=== PATIENT | female | born 1965 | race Caucasian/White ===

== ENCOUNTER 2018-01-12 17:24 | Emergency (ER) | payer BC ==
--- NOTE | 2018-01-12 17:51 | EDM.PDOC ---
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 Past medical history: As per history of present illness and as reviewed below otherwise noncontributory. Surgical history: As per history of present illness and as reviewed below otherwise noncontributory. Social history: No reported history of drug or alcohol abuse. Family history: As per history of present illness and as reviewed below otherwise noncontributory. Physical exam: Alert and oriented female answering questions appropriately skin is warm and dry speak in full sentences without shortness breath. HEENT: Atraumatic, normocehpalic, pupils reactive, negative for conjunctival pallor or scleral icterus, mucous membranes moist, throat clear, neck supple, nontender, trachea midline. Lungs: Clear to auscultation, breath sounds equal bilaterally, chest non tender. Heart: S1S2, regular, negative for clicks, rubs, or JVD. Abdomen: Soft, nondistended, nontender. Negative for masses or hepatossplenmegaly. Negative for costovertebral tenderness. Pelvis: Stable nontender. Genitourinary: Deferred. Rectal: Deferred Extremities: Atraumatic, negative for cords or calf pain. Neurovascular unremarkable. Neuro: Awake, alert, oriented. Cranial nerves II through XII unremarkable. Cerebellum unremarkable. Motor and sensory unremarkable throughout. Exam nonfocal. Influenza B+ Diagnostics: [Influenza ,strep] Therapeutics: [] Impression: []influenza B Plan: []Tamiflu Keep hydrated Tylenol alternating with Motrin every 3 hours for fever Return to ER as needed as directed and discussed Definitive disposition and diagnosis as appropriate pending reevaluation and review of above. Onset: Gradual Duration: Day(s): (2.5), Getting Worse Location: Reports: Head, Neck, Chest Quality: Reports: Ache, Throbbing Severity: Moderate Improves with: Reports: None Worsens with: Reports: None Associated Symptoms: Reports: Cough, Fever/Chills, Malaise Throat Pain Score (Numeric/FACES): 9 - Related Data Allergies Allergy/AdvReac Type Severity Reaction Status Date / Time Gluten Allergy Stomach Uncoded 02/26/15 17:04 Ache Home Meds: Home Meds Levothyroxine [Synthroid] 88 mcg PO DAILY 01/12/18 [History] Oseltamivir [Tamiflu] 75 mg PO BID #10 cap 01/12/18 [Rx] Social & Family History - Tobacco Use Smoking Status *Q: Never Smoker - Alcohol Use Days Per Week of Alcohol Use: 0 - Recreational Drug Use Recreational Drug Use: No Drug Use in Last 12 Months: No ED ROS GENERAL - Review of Systems Review Of Systems: ROS reveals no pertinent complaints other than HPI. ED EXAM, GENERAL - Physical Exam Exam: See Below (see dictation) Course - Vital Signs Last Recorded V/S: Last Vital Signs Temp 38.3 C H 01/12/18 19:26 Pulse 85 01/12/18 19:26 Resp 18 01/12/18 19:26 BP 141/67 H 01/12/18 19:26 Pulse Ox 97 01/12/18 19:26 - Orders/Labs/Meds Orders: Active Orders 24 hr Category Date Time Status CULTURE STREP A CONFIRMATION [] Stat Lab 01/12/18 18:07 Results STREP SCRN A RAPID W CULT CONF [RM] Stat Lab 01/12/18 18:07 Results Acetaminophen [Tylenol] Med 01/12/18 19:29 Once 650 mg PO NOW ONE Departure - Departure Time of Disposition: 19:35 Disposition: Home, Self-Care 01 Condition: Good Clinical Impression: Influenza - Discharge Information Prescriptions: Oseltamivir [Tamiflu] 75 mg PO BID #10 cap Referrals: Jazmyn Mathew CHAR PULLER [Primary Care Provider] - Additional Instructions: The following information is given to patients seen in the emergency department who are being discharged to home. This information is to outline your options for follow-up care. We provide all patients seen in our emergency department with a follow-up referral. The need for follow-up, as well as the timing and circumstances, are variable depending upon the specifics of your emergency department visit. If you don't have a primary care physician on staff, we will provide you with a referral. We always advise you to contact your personal physician following an emergency department visit to inform them of the circumstance of the visit and for follow-up with them and/or the need for any referrals to a consulting specialist. The emergency department will also refer you to a specialist when appropriate. This referral assures that you have the opportunity for followup care with a specialist. All of these measure are taken in an effort to provide you with optimal care, which includes your followup. Under all circumstances we always encourage you to contact your private physician who remains a resource for coordinating your care. When calling for followup care, please make the office aware that this follow-up is from your recent emergency room visit. If for any reason you are refused follow-up, please contact the [facility] emergency department at and asked to speak to the emergency department charge nurse. You have influenza Tamiflu twice daily for 5 days Tylenol alternating with Motrin every 3 hours for fever Small sips of fluid or 20 minutes while awake to keep Off work 1 week Note that has been written Return to ER when necessary as discussed - My Orders Last 24 Hours: My Active Orders 01/12/18 18:07 CULTURE STREP A CONFIRMATION [RM] Stat STREP SCRN A RAPID W CULT CONF [RM] Stat 01/12/18 19:29 Acetaminophen [Tylenol] 650 mg PO NOW ONE - Assessment/Plan Last 24 Hours: My Active Orders 01/12/18 18:07 CULTURE STREP A CONFIRMATION [RM] Stat STREP SCRN A RAPID W CULT CONF [RM] Stat 01/12/18 19:29 Acetaminophen [Tylenol] 650 mg PO NOW ONE
[2018-01-12 19:27] VITALS: BP 141/67
[2018-01-12] MEDS ORDERED: Acetaminophen 325 MG Tab PO ONE (19:29)
== END 2018-01-12 19:47 | disposition home or self-care (01) ==
LOC: MW.ED 17:24
DX: J10.1 Influenza due to other identified influenza virus with other respiratory manifestations (principal); Z91.048 Other nonmedicinal substance allergy status; Z79.899 Other long term (current) drug therapy
CPT/HCPCS: 87081; 87804; 87880; 99283; A9270

== ENCOUNTER 2018-01-13 16:50 | Inpatient (IN) | payer BC ==
[2018-01-13] MEDS ORDERED: Sodium Chloride 0.9% 1,000 ML IV ONE ×2 (17:07→18:15)
--- NOTE | 2018-01-13 17:10 | EDM.PDOC ---
ED HPI GENERAL MEDICAL PROBLEM - General Chief Complaint: General Stated Complaint: PT HAS FLU Time Seen by Provider: 01/13/18 17:00 - History of Present Illness INITIAL COMMENTS - FREE TEXT/NARRATIVE: HISTORY AND PHYSICAL: History of present illness: Patient 52-year-old female history thyroid disease and celiac sprue diagnosed yesterday with influenza and put on Tamiflu she returns now with general prostration poor oral intake. No shortness of breath no vomiting or diarrhea but she does complain of profound muscle aches and generalized weakness. Review of systems: As per history of present illness and below otherwise all systems reviewed and negative. Past medical history: As per history of present illness and as reviewed below otherwise noncontributory. Surgical history: As per history of present illness and as reviewed below otherwise noncontributory. Social history: No reported history of drug or alcohol abuse. Family history: As per history of present illness and as reviewed below otherwise noncontributory. Physical exam: HEENT: Atraumatic, normocephalic, pupils reactive, negative for conjunctival pallor or scleral icterus, mucous membranes dry, throat clear, neck supple, nontender, trachea midline. Lungs: Coarse bilaterally, breath sounds equal bilaterally, chest nontender. Heart: S1S2, regular, negative for clicks, rubs, or JVD. Abdomen: Soft, nondistended, nontender. Negative for masses or hepatosplenomegaly. Negative for costovertebral tenderness. Pelvis: Stable nontender. Genitourinary: Deferred. Rectal: Deferred. Extremities: Atraumatic, negative for cords or calf pain. Neurovascular unremarkable. Neuro: Awake, alert, oriented. Cranial nerves II through XII unremarkable. Cerebellum unremarkable. Motor and sensory unremarkable throughout. Exam nonfocal. Diagnostics: CBC CMP culture 2 UA urine culture chest x-ray EKG lactic acid ABG Therapeutics: Saline 1 L bolus Rocephin 1 g IV vancomycin 1 g IV Levaquin 750 IV Impression: #1 sepsis Definitive disposition and diagnosis as appropriate pending reevaluation and review of above. - Related Data Allergies Allergy/AdvReac Type Severity Reaction Status Date / Time Gluten Allergy Stomach Uncoded 02/26/15 17:04 Ache Home Meds: Home Meds Levothyroxine [Synthroid] 88 mcg PO DAILY 01/12/18 [History] Oseltamivir [Tamiflu] 75 mg PO BID #10 cap 01/12/18 [Rx] Past Medical History Gastrointestinal History: Reports: Celiac Disease - Infectious Disease History Infectious Disease History: Reports: Chicken Pox Social & Family History - Family History Family Medical History: Noncontributory - Tobacco Use Smoking Status *Q: Never Smoker - Caffeine Use Caffeine Use: Reports: Soda - Alcohol Use Days Per Week of Alcohol Use: 0 - Recreational Drug Use Recreational Drug Use: No Drug Use in Last 12 Months: No ED ROS GENERAL - Review of Systems Review Of Systems: ROS reveals no pertinent complaints other than HPI. ED EXAM, GENERAL - Physical Exam Exam: See Below (See dictation) Course - Vital Signs Last Recorded V/S: Last Vital Signs Temp 36.3 C 01/13/18 17:36 Pulse 109 H 01/13/18 19:07 Resp 22 H 01/13/18 19:07 BP 141/78 H 01/13/18 19:07 Pulse Ox 94 L 01/13/18 19:07 - Orders/Labs/Meds Orders: Active Orders 24 hr Category Date Time Status EKG 12 Lead [EKG Documentation Completion] [RC] STAT Care 01/13/18 18:42 Active EKG Documentation Completion [RC] STAT Care 01/13/18 17:07 Active EKG Documentation Completion [RC] STAT Care 01/13/18 17:43 Inactive Chest 1V Frontal [CR] Stat Exams 01/13/18 17:11 Taken CULTURE BLOOD [BC] Stat Lab 01/13/18 17:18 Received CULTURE BLOOD [BC] Stat Lab 01/13/18 17:30 Received CULTURE URINE [RM] Stat Lab 01/13/18 17:07 Ordered UA W/MICROSCOPIC [URIN] Stat Lab 01/13/18 17:07 Ordered Levofloxacin/Dextrose 5%-Water [Levaquin in D5W 750 MG/ Med 01/13/18 18:11 Active 150 ML] 750 mg Premix Bag 1 bag IV ONETIME Sodium Chloride 0.9% [Normal Saline] 1,000 ml Med 01/13/18 18:15 Active IV STAT Vancomycin [Vancocin] 1 gm Med 01/13/18 18:11 Active Sodium Chloride 0.9% [Normal Saline] 250 ml IV ONETIME Blood Culture x2 Reflex Set [OM.PC] Stat Oth 01/13/18 17:07 Ordered Medication Orders Levofloxacin/Dextrose 750 mg/ (Premix) 150 mls @ 100 mls/hr IV ONETIME ONE Stop: 01/13/18 19:40 Last Admin: 01/13/18 18:25 Dose: 100 mls/hr Vancomycin HCl 1 gm/ Sodium (Chloride) 250 mls @ 250 mls/hr IV ONETIME ONE Stop: 01/13/18 19:10 Last Admin: 01/13/18 18:24 Dose: 250 mls/hr Sodium Chloride (Normal Saline) 1,000 mls @ 999 mls/hr IV STAT ONE Stop: 01/13/18 19:15 Last Admin: 01/13/18 18:23 Dose: 999 mls/hr Labs: Laboratory Tests 01/13/18 01/13/18 01/13/18 Range/Units 17:18 17:30 17:50 WBC 0.92 L (4.0-11.0) K/uL RBC 4.31 (4.30-5.90) M/uL Hgb 14.1 (12.0-16.0) g/dL Hct 38.8 (36.0-46.0) % MCV 90.0 (80.0-98.0) fL MCH 32.7 H (27.0-32.0) pg MCHC 36.3 (31.0-37.0) g/dL RDW Std Deviation 38.0 (28.0-62.0) fl RDW Coeff of Khushboo 12 (11.0-15.0) % Plt Count 194 (150-400) K/uL MPV 9.60 (7.40-12.00) fL Add Manual Diff YES Neutrophils % (Manual) 45 L (48.0-80.0) % Band Neutrophils % 10 % Lymphocytes % (Manual) 30 (16.0-40.0) % Monocytes % (Manual) 15 (0.0-15.0) % Nucleated RBC % 0.0 /100WBC Absolute Seg Neuts 0.4 L (1.4-5.7) Band Neutrophils # 0.1 Lymphocytes # (Manual) 0.3 L (0.6-2.4) Monocytes # (Manual) 0.1 (0.0-0.8) Nucleated RBCs # 0 K/uL ABG pH 7.358 (7.35-7.45) ABG pCO2 32 L (35-45) mmHG ABG pO2 87 (75-100) mmHG ABG HCO3 18 L (22-26) mEq/L ABG Total CO2 16.5 ABG Base Excess -6.5 L (-2.0-2.0) Lactate (0.20-2.00) mmol/L Sodium 125 L (136-145) mmol/L Potassium 3.0 L (3.5-5.1) mmol/L Chloride 87 L (98-107) mmol/L Carbon Dioxide 22.0 (21.0-32.0) mmol/L BUN 22 H (7.0-18.0) mg/dL Creatinine 1.4 H (0.6-1.0) mg/dL Est Cr Clr Drug Dosing TNP Estimated GFR (MDRD) 39.3 ml/min Glucose 127 H (74-106) mg/dL Calcium 7.7 L (8.5-10.1) mg/dL Total Bilirubin 1.5 H (0.2-1.0) mg/dL AST 37 (15-37) IU/L ALT 20 (14-63) IU/L Alkaline Phosphatase 44 L (46-116) U/L Total Protein 6.4 (6.4-8.2) g/dL Albumin 3.1 L (3.4-5.0) g/dL Globulin 3.3 (2.0-3.5) g/dL Albumin/Globulin Ratio 0.9 L (1.3-2.8) 01/13/18 Range/Units 17:50 WBC (4.0-11.0) K/uL RBC (4.30-5.90) M/uL Hgb (12.0-16.0) g/dL Hct (36.0-46.0) % MCV (80.0-98.0) fL MCH (27.0-32.0) pg MCHC (31.0-37.0) g/dL RDW Std Deviation (28.0-62.0) fl RDW Coeff of Khushboo (11.0-15.0) % Plt Count (150-400) K/uL MPV (7.40-12.00) fL Add Manual Diff Neutrophils % (Manual) (48.0-80.0) % Band Neutrophils % % Lymphocytes % (Manual) (16.0-40.0) % Monocytes % (Manual) (0.0-15.0) % Nucleated RBC % /100WBC Absolute Seg Neuts (1.4-5.7) Band Neutrophils # Lymphocytes # (Manual) (0.6-2.4) Monocytes # (Manual) (0.0-0.8) Nucleated RBCs # K/uL ABG pH (7.35-7.45) ABG pCO2 (35-45) mmHG ABG pO2 (75-100) mmHG ABG HCO3 (22-26) mEq/L ABG Total CO2 ABG Base Excess (-2.0-2.0) Lactate 4.7 H (0.20-2.00) mmol/L Sodium (136-145) mmol/L Potassium (3.5-5.1) mmol/L Chloride (98-107) mmol/L Carbon Dioxide (21.0-32.0) mmol/L BUN (7.0-18.0) mg/dL Creatinine (0.6-1.0) mg/dL Est Cr Clr Drug Dosing Estimated GFR (MDRD) ml/min Glucose (74-106) mg/dL Calcium (8.5-10.1) mg/dL Total Bilirubin (0.2-1.0) mg/dL AST (15-37) IU/L ALT (14-63) IU/L Alkaline Phosphatase (46-116) U/L Total Protein (6.4-8.2) g/dL Albumin (3.4-5.0) g/dL Globulin (2.0-3.5) g/dL Albumin/Globulin Ratio (1.3-2.8) Meds: Medications Generic Name Dose Route Start Last Admin Trade Name Freq PRN Reason Stop Dose Admin Levofloxacin/Dextrose 750 mg/ 150 mls @ 100 mls/hr 01/13/18 18:11 01/13/18 18 :25 Premix IV 01/13/18 19:40 100 mls/hr ONETIME ONE Administration Vancomycin HCl 1 gm/ Sodium 250 mls @ 250 mls/hr 01/13/18 18:11 01/13/18 18: 24 Chloride IV 01/13/18 19:10 250 mls/hr ONETIME ONE Administration Sodium Chloride 1,000 mls @ 999 mls/hr 01/13/18 18:15 01/13/18 18:23 Normal Saline IV 01/13/18 19:15 999 mls/hr STAT ONE Administration Discontinued Medications Generic Name Dose Route Start Last Admin Trade Name Mino PRN Reason Stop Dose Admin Sodium Chloride 1,000 mls @ 999 mls/hr 01/13/18 17:07 01/13/18 17:35 Normal Saline IV 01/13/18 18:07 999 mls/hr STAT ONE Administration Ceftriaxone Sodium/Dextrose 1 50 mls @ 100 mls/hr 01/13/18 18:11 01/13/18 18: 26 gm/ Premix IV 01/13/18 18:40 100 mls/hr ONETIME ONE Administration Departure - Departure Time of Disposition: 19:11 Disposition: Admitted As Inpatient 65 Condition: Serious Clinical Impression: Sepsis - Discharge Information Referrals: PCP,None [Primary Care Provider] - Forms: ED Department Discharge - My Orders Last 24 Hours: My Active Orders 01/13/18 17:07 EKG Documentation Completion [RC] STAT CULTURE URINE [RM] Stat UA W/MICROSCOPIC [URIN] Stat Blood Culture x2 Reflex Set [OM.PC] Stat 01/13/18 17:11 Chest 1V Frontal [CR] Stat 01/13/18 17:18 CULTURE BLOOD [BC] Stat 01/13/18 17:30 CULTURE BLOOD [BC] Stat 01/13/18 18:11 Levofloxacin/Dextrose 5%-Water [Levaquin in D5W 750 MG/150 ML] 750 mg Premix Bag 1 bag IV ONETIME Vancomycin [Vancocin] 1 gm Sodium Chloride 0.9% [Normal Saline] 250 ml IV ONETIME 01/13/18 18:15 Sodium Chloride 0.9% [Normal Saline] 1,000 ml IV STAT 01/13/18 18:42 EKG 12 Lead [EKG Documentation Completion] [RC] STAT - Assessment/Plan Last 24 Hours: My Active Orders 01/13/18 17:07 EKG Documentation Completion [RC] STAT CULTURE URINE [RM] Stat UA W/MICROSCOPIC [URIN] Stat Blood Culture x2 Reflex Set [OM.PC] Stat 01/13/18 17:11 Chest 1V Frontal [CR] Stat 01/13/18 17:18 CULTURE BLOOD [BC] Stat 01/13/18 17:30 CULTURE BLOOD [BC] Stat 01/13/18 18:11 Levofloxacin/Dextrose 5%-Water [Levaquin in D5W 750 MG/150 ML] 750 mg Premix Bag 1 bag IV ONETIME Vancomycin [Vancocin] 1 gm Sodium Chloride 0.9% [Normal Saline] 250 ml IV ONETIME 01/13/18 18:15 Sodium Chloride 0.9% [Normal Saline] 1,000 ml IV STAT 01/13/18 18:42 EKG 12 Lead [EKG Documentation Completion] [RC] STAT
[2018-01-13] MEDS ORDERED: cefTRIAXone 1 GM in Premix Bag 1 BAG IV ONE (18:11)
[2018-01-13] MEDS ORDERED: Levofloxacin/Dextrose 5%-Water 750 MG in Premix Bag 1 BAG IV ONE (18:11)
[2018-01-13 18:34] LABS: CHLORIDE,CL 87 mmol/L (98-107); SODIUM,NA 125 mmol/L (136-145)
[2018-01-13] MEDS ORDERED: Morphine 10 MG/ML Syringe IVPUSH PRN (19:26)
[2018-01-13] MEDS ORDERED: Acetaminophen 325 MG Tab PO PRN (19:26)
[2018-01-13] MEDS ORDERED: Ondansetron 4 MG/2 ML SDV IVPUSH PRN (19:26)
[2018-01-13] MEDS ORDERED: Piperacillin/Tazobactam 4.5 GM in Sodium Chloride 0.9% 100 ML IV SCH (19:30)
[2018-01-13] MEDS ORDERED: Enoxaparin 40 MG/0.4 ML Syringe SUBCUT SCH (19:30)
--- NOTE | 2018-01-13 19:41 | PCM.HP ---
H&P History of Present Illness - General Admit Problem/Dx: Admission Diagnosis/Problem Admission Diagnosis/Problem Sepsis - History of Present Illness Initial Comments - Free Text/Narative: 52 yo female who reports fevers, myalgias and shortness of breath for three days. She was seen yesterday in the ED and tested positive for Influenza B and sent home on tamiflu. She returned today with worsening symptoms and lethargy. She was noted to have blood pressures of 90s/50s, sating 94% on 10 liters NRB , WBC was noted to be 0.92. CXR showed bilateral infiltrates. She received Levaquin, Rocephin, and Vancomycin in the ED. - Related Data Allergies/Adverse Reactions: Allergies Allergy/AdvReac Type Severity Reaction Status Date / Time Gluten Allergy Stomach Uncoded 02/26/15 17:04 Ache Home Medications: Home Meds Levothyroxine [Synthroid] 88 mcg PO DAILY 01/12/18 [History] Oseltamivir [Tamiflu] 75 mg PO BID #10 cap 01/12/18 [Rx] Past Medical History Respiratory History: Reports: Other (See Below) Other Respiratory History: influenza B Gastrointestinal History: Reports: Celiac Disease - Infectious Disease History Infectious Disease History: Reports: Chicken Pox Social & Family History - Family History Family Medical History: Noncontributory - Tobacco Use Smoking Status *Q: Never Smoker - Caffeine Use Caffeine Use: Reports: Soda - Alcohol Use Days Per Week of Alcohol Use: 0 - Recreational Drug Use Recreational Drug Use: No Drug Use in Last 12 Months: No H&P Review of Systems - Review of Systems: Review Of Systems: ROS reveals no pertinent complaints other than HPI. Exam - Exam Exam: See Below - Vital Signs Vital Signs: Last Vital Signs Temp 36.3 C 01/13/18 17:36 Pulse 109 H 01/13/18 19:07 Resp 22 H 01/13/18 19:07 BP 141/78 H 01/13/18 19:07 Pulse Ox 94 L 01/13/18 19:07 Weight: 65.771 kg - Exam General: Alert, Oriented HEENT: Mucosa Moist & [place] Neck: Supple Lungs: Normal Respiratory Effort, Rhonchi Cardiovascular: Regular Rate, Regular Rhythm GI/Abdominal Exam: Soft, Non-Tender, No Distention Extremities: No Pedal Edema Skin: Warm, Dry, Intact - Patient Data Lab Results Last 24 hrs: Laboratory Results - last 24 hr 01/13/18 01/13/18 01/13/18 Range/Units 17:18 17:30 17:50 WBC 0.92 L (4.0-11.0) K/uL RBC 4.31 (4.30-5.90) M/uL Hgb 14.1 (12.0-16.0) g/dL Hct 38.8 (36.0-46.0) % MCV 90.0 (80.0-98.0) fL MCH 32.7 H (27.0-32.0) pg MCHC 36.3 (31.0-37.0) g/dL RDW Std Deviation 38.0 (28.0-62.0) fl RDW Coeff of Khushboo 12 (11.0-15.0) % Plt Count 194 (150-400) K/uL MPV 9.60 (7.40-12.00) fL Add Manual Diff YES Neutrophils % (Manual) 45 L (48.0-80.0) % Band Neutrophils % 10 % Lymphocytes % (Manual) 30 (16.0-40.0) % Monocytes % (Manual) 15 (0.0-15.0) % Nucleated RBC % 0.0 /100WBC Absolute Seg Neuts 0.4 L (1.4-5.7) Band Neutrophils # 0.1 Lymphocytes # (Manual) 0.3 L (0.6-2.4) Monocytes # (Manual) 0.1 (0.0-0.8) Nucleated RBCs # 0 K/uL ABG pH 7.358 (7.35-7.45) ABG pCO2 32 L (35-45) mmHG ABG pO2 87 (75-100) mmHG ABG HCO3 18 L (22-26) mEq/L ABG Total CO2 16.5 ABG Base Excess -6.5 L (-2.0-2.0) Lactate (0.20-2.00) mmol/L Sodium 125 L (136-145) mmol/L Potassium 3.0 L (3.5-5.1) mmol/L Chloride 87 L (98-107) mmol/L Carbon Dioxide 22.0 (21.0-32.0) mmol/L BUN 22 H (7.0-18.0) mg/dL Creatinine 1.4 H (0.6-1.0) mg/dL Est Cr Clr Drug Dosing TNP Estimated GFR (MDRD) 39.3 ml/min Glucose 127 H (74-106) mg/dL Calcium 7.7 L (8.5-10.1) mg/dL Total Bilirubin 1.5 H (0.2-1.0) mg/dL AST 37 (15-37) IU/L ALT 20 (14-63) IU/L Alkaline Phosphatase 44 L (46-116) U/L Total Protein 6.4 (6.4-8.2) g/dL Albumin 3.1 L (3.4-5.0) g/dL Globulin 3.3 (2.0-3.5) g/dL Albumin/Globulin Ratio 0.9 L (1.3-2.8) 03/25/18 Range/Units 17:50 WBC (4.0-11.0) K/uL RBC (4.30-5.90) M/uL Hgb (12.0-16.0) g/dL Hct (36.0-46.0) % MCV (80.0-98.0) fL MCH (27.0-32.0) pg MCHC (31.0-37.0) g/dL RDW Std Deviation (28.0-62.0) fl RDW Coeff of Khushboo (11.0-15.0) % Plt Count (150-400) K/uL MPV (7.40-12.00) fL Add Manual Diff Neutrophils % (Manual) (48.0-80.0) % Band Neutrophils % % Lymphocytes % (Manual) (16.0-40.0) % Monocytes % (Manual) (0.0-15.0) % Nucleated RBC % /100WBC Absolute Seg Neuts (1.4-5.7) Band Neutrophils # Lymphocytes # (Manual) (0.6-2.4) Monocytes # (Manual) (0.0-0.8) Nucleated RBCs # K/uL ABG pH (7.35-7.45) ABG pCO2 (35-45) mmHG ABG pO2 (75-100) mmHG ABG HCO3 (22-26) mEq/L ABG Total CO2 ABG Base Excess (-2.0-2.0) Lactate 4.7 H (0.20-2.00) mmol/L Sodium (136-145) mmol/L Potassium (3.5-5.1) mmol/L Chloride (98-107) mmol/L Carbon Dioxide (21.0-32.0) mmol/L BUN (7.0-18.0) mg/dL Creatinine (0.6-1.0) mg/dL Est Cr Clr Drug Dosing Estimated GFR (MDRD) ml/min Glucose (74-106) mg/dL Calcium (8.5-10.1) mg/dL Total Bilirubin (0.2-1.0) mg/dL AST (15-37) IU/L ALT (14-63) IU/L Alkaline Phosphatase (46-116) U/L Total Protein (6.4-8.2) g/dL Albumin (3.4-5.0) g/dL Globulin (2.0-3.5) g/dL Albumin/Globulin Ratio (1.3-2.8) Result Diagrams: 01/13/18 17:18 01/13/18 17:30 Problem List Initiated/Reviewed/Updated: Yes Orders Last 24hrs: Active Orders 24 hr Category Date Time Status Patient Status [ADT] Stat ADT 01/13/18 19:12 Active Antiembolic Devices [RC] PER UNIT ROUTINE Care 01/13/18 19:27 Ordered EKG 12 Lead [EKG Documentation Completion] [RC] STAT Care 01/13/18 18:42 Active EKG Documentation Completion [RC] STAT Care 01/13/18 17:07 Active EKG Documentation Completion [RC] STAT Care 01/13/18 17:43 Inactive Oxygen Therapy [RC] PRN Care 01/13/18 19:26 Ordered VTE/DVT Education [RC] PER UNIT ROUTINE Care 01/13/18 19:26 Ordered Vital Signs [RC] Q4H Care 01/13/18 19:26 Ordered Regular Diet [DIET] Diet 01/13/18 Breakfast Ordered Chest 1V Frontal [CR] Stat Exams 01/13/18 17:11 Taken BASIC METABOLIC PANEL,BMP [CHEM] AM Lab 01/14/18 05:11 Ordered BASIC METABOLIC PANEL,BMP [CHEM] AM Lab 01/15/18 05:11 Ordered BASIC METABOLIC PANEL,BMP [CHEM] Stat Lab 01/14/18 00:00 Ordered CBC WITH AUTO DIFF [HEME] AM Lab 01/14/18 05:11 Ordered CBC WITH AUTO DIFF [HEME] AM Lab 01/15/18 05:11 Ordered CULTURE BLOOD [BC] Stat Lab 01/13/18 17:18 Received CULTURE BLOOD [BC] Stat Lab 01/13/18 17:30 Received CULTURE SPUTUM + SMEAR [RM] Routine Lab 01/13/18 19:25 Ordered CULTURE URINE [RM] Stat Lab 01/13/18 17:07 Ordered LACTIC ACID,WHOLE BLOOD [BG] Q6H Lab 01/13/18 22:00 Ordered LACTIC ACID,WHOLE BLOOD [BG] Q6H Lab 01/14/18 04:00 Ordered LACTIC ACID,WHOLE BLOOD [BG] Q6H Lab 01/14/18 10:00 Ordered LACTIC ACID,WHOLE BLOOD [BG] Q6H Lab 01/14/18 16:00 Ordered UA W/MICROSCOPIC [URIN] Stat Lab 01/13/18 17:07 Ordered Acetaminophen [Tylenol] Med 01/13/18 19:26 Ordered 650 mg PO Q4H PRN Enoxaparin [Lovenox] Med 01/13/18 19:30 Ordered 40 mg SUBCUT Q24H Levofloxacin/Dextrose 5%-Water [Levaquin in D5W 750 MG/ Med 01/13/18 18:11 Active 150 ML] 750 mg Premix Bag 1 bag IV ONETIME Levofloxacin/Dextrose 5%-Water [Levaquin in D5W 750 MG/ Med 01/14/18 19:30 Ordered 150 ML] 750 mg Premix Bag 1 bag IV Q24H Morphine Med 01/13/18 19:26 Ordered 1 mg IVPUSH Q2H PRN Ondansetron [Zofran] Med 01/13/18 19:26 Ordered 4 mg IVPUSH Q4H PRN Oseltamivir [Tamiflu] Med 01/13/18 21:00 Ordered 75 mg PO BID Piperacillin/Tazobactam [Piperacil-Tazobact] 4.5 gm Med 01/13/18 19:30 Ordered Sodium Chloride 0.9% [Normal Saline] 100 ml IV Q6H Vancomycin Pharmacy to Dose [Pharmacy to Dose - Med 01/13/18 19:30 Ordered Vancomycin] 1 dose .XX ASDIRECTED Blood Culture x2 Reflex Set [OM.PC] Stat Oth 03/25/18 17:07 Ordered Sequential Compression Device [OM.PC] Per Unit Routine Oth 01/13/18 19:27 Ordered Resuscitation Status Routine Resus Stat 01/13/18 19:26 Ordered Medication Orders Acetaminophen (Tylenol) 650 mg PO Q4H PRN PRN Reason: Pain (Mild 1-3)/fever Enoxaparin Sodium (Lovenox) 40 mg SUBCUT Q24H ENRIQUE Levofloxacin/Dextrose 750 mg/ (Premix) 150 mls @ 100 mls/hr IV ONETIME ONE Stop: 01/13/18 19:40 Last Admin: 01/13/18 18:25 Dose: 100 mls/hr Levofloxacin/Dextrose 750 mg/ (Premix) 150 mls @ 100 mls/hr IV Q24H ENRIQUE Piperacillin Sod/Tazobactam (Sod 4.5 gm/ Sodium Chloride) 100 mls @ 100 mls/hr IV Q6H ENRIQUE Morphine Sulfate (Morphine) 1 mg IVPUSH Q2H PRN PRN Reason: Pain (severe 7-10) Stop: 01/14/18 19:27 Ondansetron HCl (Zofran) 4 mg IVPUSH Q4H PRN PRN Reason: Nausea Oseltamivir Phosphate (Tamiflu) 75 mg PO BID ENRIQUE Vancomycin HCl (Pharmacy To Dose - Vancomycin) 1 dose .XX ASDIRECTED [facility] Assessment/Plan Comment:: 52 yo female admitted with severe community acquired pneumonia with sepsis and acute hypoxic respiratory failure. We will resuscitate with IV fluids and trend lactic acid. We will treat pneumonia with Vancomyicn, zosyn, levaquin, and tamiflu. Blood and sputum cultures ordered. I have spoke with eICU physician. Addendum: Once patient was transfered to the ICU she was noted to be in marked respiratory distress. She was intubated and placed on a ventilator. I called [facility] in [place] and Dr. Dunn has accept the patient. Air transfer was arranged.
[2018-01-13] MEDS ORDERED: Sodium Chloride 0.9% 1,000 ML IV SCH (19:43)
[2018-01-13] MEDS ORDERED: Propofol 200 MG/20 ML SDV ONE (20:07)
[2018-01-13] MEDS ORDERED: Lidocaine 2% 5 ML SDV ONE (20:18)
[2018-01-13] MEDS ORDERED: Oseltamivir 75 MG Cap PO SCH (21:00)
--- NOTE | 2018-01-13 21:19 | PCM.PRNOTE ---
- Free Text/Narrative Note: asked to see patient regarding intubation in ICU. Patient identified and procedure explained including risks of aspiration and tooth injury. Patient agrees to the best of her ability. 40 mg lidocaine IV followed by 14 mg etomidate and 30 mg zemuron. Pt easy mask ventilation, first look with MAC 3, cords very anterior. glide scope #4 easy view but not able to pass ETT 7.5 easily. ETT changed to 6.5 with successful placement, stylet utilized. positive ETCO2 and breath sounds bilat. tube secured 20 at lip. in between intubation attempts oral suction for bloody fluid approx 10 ml in oropharynx. glottic oss also bloody appearing before intubating. Pt placed on ventilator at rate of 10 breaths /min, tidal volume 540 SIMV 5 peep FIO2 100%. Spo2 from 82% to 93%. suctioned copious amounts frothy bloody sputum, approximately 50 ml. Placed on Propofol sedation at initially 20 mcg/kg/min, increased to 50 mcg/kg/min. VSS ETCO2 decreased from 52 to 43 over 30 minutes.
[2018-01-13 21:57] VITALS: BP 116/64
[2018-01-13] MEDS ORDERED: Rocuronium 50 MG/5 ML Vial IV ONE (22:29)
[2018-01-13] MEDS ORDERED: Etomidate 2 MG/ML 20 ML SDV IVPUSH ONE (22:29)
--- NOTE | 2018-01-14 16:10 | CR ---
EXAM DATE: 01/13/18 PATIENT'S AGE: 52 Patient: MANI CROWELL Facility: [place], [place] Site . Site : 1965 Study: XRay Chest [id number]/25/2018 6:09:30 PM Ordering Physician: Mirta Prather Final Report: HISTORY: Chest pain and shortness of breath. TECHNIQUE: One view of the chest. COMPARISON: No prior. FINDINGS: There are bilateral lung infiltrates. No pneumothorax. No moderate or large pleural effusion. Cardiac size within normal limits. IMPRESSION: Bilateral lung infiltrates. Dictated by Tyler Anand MD @ 01/13/2018 6:26:44 PM Dictated by: Tyler Anand MD @ 01/13/2018 18:26:48 (Electronic Signature) Report Signed by Proxy. [facility]
--- NOTE | 2018-01-14 16:14 | CR ---
EXAM DATE: 01/13/18 PATIENT'S AGE: 52 Patient: MANI CROWELL Facility: [place], [place] Site . Site : 1965 Study: XRay Chest [id number]/25/2018 8:56:11 PM Ordering Physician: Taye Armstrong Final Report: INDICATION: Post intubation TECHNIQUE: Chest 1 view. A 30 p.m. COMPARISON: 5:58 p.m. FINDINGS: Cardiovascular and mediastinum: Heart size and vasculature are normal in caliber and appearance. Mediastinum is within normal limits. Lungs and pleural space: Bilateral airspace opacities consistent with pneumonia. No sign of pleural effusion. No pneumothorax. Bones and soft tissues: No significant findings. Lines and tubes: The ET tube is in place with the tip 6.0 centimeters from the brielle. IMPRESSION: ET tube in place with its tip 6.0 centimeters from the carotid. Bilateral infiltrates. Dictated by Luis Serna MD @ 01/13/2018 9:10:59 PM Dictated by: Luis Serna MD @ 01/13/2018 21:11:04 (Electronic Signature) Report Signed by Proxy. [facility]
[2018-01-14] MEDS ORDERED: Levofloxacin/Dextrose 5%-Water 750 MG in Premix Bag 1 BAG IV SCH (19:30)
== END 2018-01-13 22:30 | DRG 720 ==
LOC: MW.ED 16:50 → MW.ICU 19:12
PROVIDERS: ADMIT Internal Medicine; ATTEND Internal Medicine
PROC: 0BH17EZ Insertion of Endotracheal Airway into Trachea, Via Natural or Artificial Opening (ICD-10-PCS; principal; 2018-01-13)
PROC: 5A1935Z Respiratory Ventilation, Less than 24 Consecutive Hours (ICD-10-PCS; 2018-01-13)
DX: A41.9 Sepsis, unspecified organism (principal); J18.9 Pneumonia, unspecified organism; J96.01 Acute respiratory failure with hypoxia; J11.1 Influenza due to unidentified influenza virus with other respiratory manifestations; E03.9 Hypothyroidism, unspecified; K90.0 Celiac disease; R53.1 Weakness; Z79.899 Other long term (current) drug therapy
CPT/HCPCS: 36415; 36600; 51702; 71045; 71045-26; 80053; 81001; 82803; 83605; 85025; 87040; 87070; 87077; 87086; 87186; 87205; 93005; 96361; 96365; 96375; 99283; 99285-25; J0696; J1956; J2543; J3370; J7030; J7040; J7050